=== PATIENT | female | born 1995 | race Caucasian/White ===

== ENCOUNTER 2024-11-02 14:26 | Inpatient (IN) | payer BC ==
[2024-11-02 14:43] VITALS: BMI 40.2
[2024-11-02 15:16] LABS: #Basophils Less than 0.03 10x3/uL (0.0-0.2); #Eosinophils Less than 0.03 10x3/uL (0.0-0.5); #Monocytes 0.58 10x3/uL (0.0-1.1); #Neutrophils 5.79 10x3/uL (1.5-8.4); %Basophils 0.2 % (0.0-2.0); %Eosinophils 0.2 % (0.0-6.0); %Lymphocytes 21.3 % (18.0-47.0); %Monocytes 7.1 % (0.0-10.0); %Neutrophils 70.5 % (40.0-75.0); Hematocrit 39.7 % (34.9-44.5); Hemoglobin 13.1 g/dL (12.0-15.5); Mean Corpuscular Hemoglobin 30.0 pg (27.0-33.0); Mean Corpuscular Volume 90.8 fL (81.6-98.3); Platelet Count 292 10x3/uL (150-450); Red Blood Cell (RBC) Count 4.37 10x6/uL (3.90-5.03); White Blood Cell (WBC) Count 8.22 10x3/uL (3.5-10.5)
[2024-11-02 15:43] LABS: Protein, Urine Random Quant Less than 10 mg/dL (1-14)
[2024-11-02 15:46] LABS: ALT (SGPT) 21 U/L (Less than 34); AST (SGOT) 24 U/L (11-34); Albumin 3.0 g/dL (3.1-4.5); Alkaline Phosphatase 204 U/L (40-110); Anion Gap 17 mmol/L (10-20); BUN (Urea Nitrogen) 7 mg/dL (7.0-18.7); Bilirubin, Total 0.3 mg/dL (0.3-1.2); Calc. Creatinine Clearance 190 mL/min (70-130); Calcium 8.9 mg/dL (7.8-10.44); Carbon Dioxide 19 mmol/L (22-29); Chloride 105 mmol/L (98-107); Globulin 3.4 g/dL (2.4-3.5); Glucose 86 mg/dL (70-105); Potassium 4.4 mmol/L (3.5-5.1); Sodium 137 mmol/L (136-145)
[2024-11-02] MEDS ORDERED: Ibuprofen 800 MG TAB PO PRN (16:58)
[2024-11-02] MEDS ORDERED: Acetaminophen 500 MG TAB PO PRN (16:58)
[2024-11-02] MEDS ORDERED: Lidocaine 1% (PF) 30 ML VIAL SC PRN (16:58)
[2024-11-02] MEDS ORDERED: HYDROcodone/Acetaminophen 5/325 mg Tablet PO PRN (16:58)
[2024-11-02] MEDS ORDERED: Carboprost 250 MCG/ML AMP IM PRN (16:58)
[2024-11-02] MEDS ORDERED: hydrALAZINE 20 MG/ML VIAL SLOW IVP PRN (16:58)
[2024-11-02] MEDS ORDERED: Diphenoxylate HCl/Atropine Tablet PO PRN (16:58)
[2024-11-02] MEDS ORDERED: Ondansetron PF 4 MG/2 ML Vial IVP PRN (16:58)
[2024-11-02] MEDS ORDERED: Methylergonovine 0.2 MG/ML VIAL IM PRN (16:58)
[2024-11-02] MEDS ORDERED: Oxytocin 30 units/NS 500 ML 500 ML IV SCH ×2 (17:00)
[2024-11-02 17:43] LABS: Hep B Surf Ag - L&D Non-Reactive S/CO (NonReactive); Syphilis Antibody Index 0.03 S/CO (<1.00 Non-Reactive)
[2024-11-03] MEDS ORDERED: Oxytocin 30 units/NS 500 ML 500 ML IV SCH (13:00)
[2024-11-04] MEDS: fentaNYL/Ropivacaine Epidural 100 ML ONE (04:01)
[2024-11-04] MEDS ORDERED: Ondansetron PF 4 MG/2 ML Vial IVP PRN ×2 (04:16→20:23)
[2024-11-04] MEDS ORDERED: Acetaminophen 325 MG TAB PO PRN ×2 (04:16→20:23)
[2024-11-04] MEDS ORDERED: diphenhydrAMINE 50 MG/ML VIAL IVP PRN ×2 (04:16→17:12)
[2024-11-04] MEDS ORDERED: Communication Order-Pharmacy FS SCH ×2 (04:30→17:15)
[2024-11-04] MEDS ORDERED: fentaNYL 2 mcg/Ropivacaine 0.2% Epidural 100 ML CADD EPIDURAL SCH (04:30)
[2024-11-04] MEDS ORDERED: Bicitra 30 ML UDCUP PO PRN ×2 (16:08→20:23)
[2024-11-04] MEDS ORDERED: Famotidine/PF 20 mg/2ml Vial SLOW IVP PRN ×2 (16:08→20:23)
[2024-11-04] MEDS ORDERED: Meperidine HCl/PF 25 MG (1 mL) VIAL SLOW IVP PRN (17:12)
[2024-11-04] MEDS ORDERED: Ketorolac Tromethamine 30 MG (1 mL) VIAL IVP SCH (17:15)
[2024-11-04] MEDS: Ketorolac Tromethamine 30 MG (1 mL) VIAL IVP SCH (20:20)
[2024-11-04] MEDS: PHENYLEPHRINE-NS 100 MCG/ML 10 ML SYRINGE ONE (20:20)
[2024-11-04] MEDS: Ketorolac Tromethamine 30 MG (1 mL) VIAL ONE (20:20)
[2024-11-04] MEDS: Oxytocin 10 UNITS/ML VIAL ONE ×2 (20:20)
[2024-11-04] MEDS: Azithromycin 500 MG VIAL ONE ×2 (20:21)
[2024-11-04] MEDS: Lidocaine 2% MPF 10 ML AMP (For Epidural Use) ONE (20:21)
[2024-11-04] MEDS: Dexamethasone 10 MG/ML VIAL ONE (20:21)
[2024-11-04] MEDS: Ondansetron PF 4 MG/2 ML Vial ONE (20:21)
[2024-11-04] MEDS: CEFAZOLIN 2 GM VIAL ONE (20:21)
[2024-11-04] MEDS ORDERED: diphenhydrAMINE 25 MG CAP PO PRN (20:23)
[2024-11-04] MEDS ORDERED: Simethicone Chewable 80 MG TAB PO PRN (20:23)
[2024-11-04] MEDS ORDERED: Boostrix 0.5 ML (Tdap) VIAL (>/=7 yrs of age) IM ONE (20:23)
[2024-11-04] MEDS ORDERED: hydrALAZINE 20 MG/ML VIAL SLOW IVP PRN (20:23)
[2024-11-04] MEDS ORDERED: Lanolin Ointment 7 GM TUBE TOP PRN (20:23)
[2024-11-04] MEDS ORDERED: Bisacodyl 10 MG SUPP PR PRN (20:23)
[2024-11-04] MEDS: NIFEdipine XL 30 MG ER.TAB PO SCH (20:31)
[2024-11-04] MEDS: Ferrous Sulfate 325 MG TAB PO SCH (22:43)
[2024-11-05 06:08] LABS: Hematocrit 29.2 % (34.9-44.5); Hemoglobin 9.6 g/dL (12.0-15.5); Mean Corpuscular Hemoglobin 30.2 pg (27.0-33.0); Mean Corpuscular Volume 91.8 fL (81.6-98.3); Platelet Count 218 10x3/uL (150-450); Red Blood Cell (RBC) Count 3.18 10x6/uL (3.90-5.03); White Blood Cell (WBC) Count 13.51 10x3/uL (3.5-10.5)
[2024-11-05] MEDS ORDERED: HYDROcodone/Acetaminophen 5/325 mg Tablet PO PRN (06:15)
[2024-11-05] MEDS: HYDROcodone/Acetaminophen 5/325 mg Tablet PO PRN (09:26)
[2024-11-05] MEDS: NIFEdipine XL 30 MG ER.TAB PO SCH (09:26)
[2024-11-05] MEDS ORDERED: Lidocaine 2% MPF 10 ML AMP (For Epidural Use) ONE (12:38)
[2024-11-05] MEDS ORDERED: Bupivacaine HCl 0.5%/Epinephrine 1:200,000/PF 30 ml Vial ONE (12:38)
[2024-11-05] MEDS: Ibuprofen 800 MG TAB PO SCH (22:18)
[2024-11-06 08:44] VITALS: TEMP 98
[2024-11-06 12:57] VITALS: BP 137/76
== END 2024-11-06 19:30 | disposition home or self-care (01) | DRG 788 ==
LOC: CSHLD/OP 14:26 → CSHLD 17:13 → CSHPP 11-04 19:20
PROVIDERS: ADMIT Student in an Organized Health Care Education/Training Program; ATTEND Student in an Organized Health Care Education/Training Program
PROC: 10D00Z1 Extraction of Products of Conception, Low, Open Approach (ICD-10-PCS; principal; 2024-11-04)
PROC: 0U7C7DJ Dilation of Cervix with Intraluminal Device, Temporary, Via Natural or Artificial Opening (ICD-10-PCS; 2024-11-04)
PROC: 3E033VJ Introduction of Other Hormone into Peripheral Vein, Percutaneous Approach (ICD-10-PCS; 2024-11-04)
DX: O13.4 Gestational [pregnancy-induced] hypertension without significant proteinuria, complicating childbirth (principal); O76 Abnormality in fetal heart rate and rhythm complicating labor and delivery; Z3A.38 38 weeks gestation of pregnancy; Z79.899 Other long term (current) drug therapy; Z79.82 Long term (current) use of aspirin; Z37.0 Single live birth
CPT/HCPCS: 36415; 51702; 59200; 76819; 80053; 82570; 84156; 85025; 85027; 86780; 86850; 86900; 86901; 87340; 99285; J0595; J1100; J1885; J2274; J2405; J2550; J2590